=== PATIENT | female | born 1940 | race Caucasian/White ===

== ENCOUNTER 2021-06-19 10:09 | Emergency (ER) | payer MEDICARE ==
--- NOTE | 2021-06-19 11:47 | ER ---
Nurse's Notes [facility] Name: Aiyana Zamarripa Age: 81 yrs Sex: Female : 1940 Arrival Date: 06/19/2021 Time: 10:12 Bed 11 Private MD: Diagnosis: Pain in left knee;Synovial cyst of popliteal space [Gomez], left knee Presentation: 06/19 10:41 Chief complaint: Patient states: she is experiencing left knee pain, accompanied by ap3 left lower extremity swelling and feels a knot behind her left knee as well. Patient states she is here on vacation, and called her PCP from where she is from and was informed to be evaluated in the ED. Patient states she has had surgery on the injured knee approx 2 years ago. Coronavirus screen: At this time, the client does not indicate any symptoms associated with coronavirus-19. Ebola Screen: No symptoms or risks identified at this time. Initial Sepsis Screen: Does the patient meet any 2 criteria? No. Patient's initial sepsis screen is negative. Does the patient have a suspected source of infection? No. Patient's initial sepsis screen is negative. Risk Assessment: Do you want to hurt yourself or someone else? Patient reports no desire to harm self or others. Onset of symptoms was June 05, 2021. 10:41 Method Of Arrival: Ambulatory ap3 10:41 Acuity: AASHISH 3 ap3 Triage Assessment: 10:46 General: Appears in no apparent distress. Behavior is calm, cooperative, appropriate ap3 for age. Pain: Complains of pain in left knee Pain currently is 2 out of 10 on a pain scale. Pain began gradually. Neuro: Level of Consciousness is awake, alert, obeys commands, Oriented to person, place, time, situation, Appropriate for age Gait is steady, Speech is normal. Cardiovascular: Patient's skin is warm and dry. Respiratory: Airway is patent Respiratory effort is even, unlabored. Musculoskeletal: Swelling present in left leg. Historical: - Allergies: 10:44 Sulfa (Sulfonamide Antibiotics); ap3 10:44 Flonase; ap3 - Home Meds: 10:44 losartan oral [Active]; amlodipine oral [Active]; Synthroid Oral [Active]; ap3 - PMHx: 10:44 Hypertensive disorder; Hypothyroidism; Kidney disease; ap3 - Immunization history:: Client reports receiving the 1st dose of the Covid vaccine, Pneumococcal vaccine is not up to date, Flu vaccine is not up to date. - Social history:: Smoking status: Patient denies any tobacco usage or history of. Screenin:46 Abuse screen: Denies threats or abuse. Nutritional screening: No deficits noted. ap3 Tuberculosis screening: No symptoms or risk factors identified. Fall Risk No fall in past 12 months (0 pts). Assessment: 11:29 Reassessment: No changes from previously documented assessment. Patient and/or family ll1 updated on plan of care and expected duration. Pain level reassessed. Patient is alert, oriented x 3, equal unlabored respirations, skin warm/dry/pink. Gait steady from x ray. Vital Signs: 10:41 BP 154 / 73; Pulse 71; Resp 16; Temp 98.8; Pulse Ox 95% ; Weight 61.23 kg; Height 5 ft. ap3 6 in. (167.64 cm); Pain 2/10; 10:41 Body Mass Index 21.79 (61.23 kg, 167.64 cm) ap3 ED Course: 10:12 Patient arrived in ED. ds1 10:44 Triage completed. ap3 10:47 Arm band placed on right wrist. ap3 11:12 Extremity Venous Uni Ltd US In Process Unspecified. EDMS 11:14 Amol Huntley, IAN is Primary Nurse. ll1 11:22 XRAY Knee LEFT 3 view In Process Unspecified. EDMS 11:26 Chan Augustin PA is PHCP. jr8 11:26 Wanda Graves MD is Attending Physician. jr8 11:29 Patient has correct armband on for positive identification. Bed in low position. Call ll1 light in reach. Cardiac monitoring not applicable on this patient. 12:03 No provider procedures requiring assistance completed. Patient did not have IV access ll1 during this emergency room visit. Administered Medications: No medications were administered Outcome: :46 Discharge ordered by . jr8 12:03 Discharged to home ambulatory. ll1 12:03 Condition: stable 12:03 Discharge instructions given to patient, Instructed on discharge instructions, follow up and referral plans. Demonstrated understanding of instructions, follow-up care. 12:04 Patient left the ED. ll1 Signatures: Dispatcher [facility] Rachna Rubio ds1 Chan Augustin PA PA jr8 Suzie Mendoza, RN RN ap3 Amol Huntley, RN RN ll1
--- NOTE | 2021-06-19 11:47 | EDPHYS ---
Physician Documentation [facility] Name: Aiyana Zamarripa Age: 81 yrs Sex: Female : 1940 Arrival Date: 06/19/2021 Time: 10:12 Bed 11 Private MD: ED Physician Wanda Graves HPI: 06/19 11:40 This 81 yrs old Female presents to ER via Ambulatory with complaints of Knee Pain. jr8 11:40 Onset: The symptoms/episode began/occurred gradually. The patient has not experienced jr8 similar symptoms in the past. The patient has not recently seen a physician. Denies trauma. From [place]. Contacted her physician there today and was told to r/o DVT. Historical: - Allergies: 10:44 Sulfa (Sulfonamide Antibiotics); ap3 10:44 Flonase; ap3 - Home Meds: 10:44 losartan oral [Active]; amlodipine oral [Active]; Synthroid Oral [Active]; ap3 - PMHx: 10:44 Hypertensive disorder; Hypothyroidism; Kidney disease; ap3 - Immunization history:: Client reports receiving the 1st dose of the Covid vaccine, Pneumococcal vaccine is not up to date, Flu vaccine is not up to date. - Social history:: Smoking status: Patient denies any tobacco usage or history of. ROS: 11:40 Eyes: Negative for injury, pain, redness, and discharge, ENT: Negative for injury, jr8 pain, and discharge, Neck: Negative for injury, pain, and swelling, Cardiovascular: Negative for chest pain, palpitations, and edema, Respiratory: Negative for shortness of breath, cough, wheezing, and pleuritic chest pain, Abdomen/GI: Negative for abdominal pain, nausea, vomiting, diarrhea, and constipation, Back: Negative for injury and pain, Skin: Negative for injury, rash, and discoloration, Neuro: Negative for headache, weakness, numbness, tingling, and seizure. 11:40 MS/extremity: Positive for pain, tenderness, of the right leg. Exam: 11:42 Constitutional: This is a well developed, well nourished patient who is awake, alert, jr8 and in no acute distress. Cardiovascular: Regular rate and rhythm with a normal S1 and S2. No gallops, murmurs, or rubs. Normal PMI, no JVD. No pulse deficits. Respiratory: Lungs have equal breath sounds bilaterally, clear to auscultation and percussion. No rales, rhonchi or wheezes noted. No increased work of breathing, no retractions or nasal flaring. Back: No spinal tenderness. No costovertebral tenderness. Full range of motion. Skin: Warm, dry with normal turgor. Normal color with no rashes, no lesions, and no evidence of cellulitis. Neuro: Awake and alert, GCS 15, oriented to person, place, time, and situation. Cranial nerves II-XII grossly intact. Motor strength 5/5 in all extremities. Sensory grossly intact. 11:42 Musculoskeletal/extremity: Extremities: grossly normal except: noted in the left leg: pain, tenderness, To posterior knee, ROM: intact in all extremities, full active range of motion, full passive range of motion, Circulation is intact in all extremities. Sensation intact. Vital Signs: 10:41 BP 154 / 73; Pulse 71; Resp 16; Temp 98.8; Pulse Ox 95% ; Weight 61.23 kg; Height 5 ft. ap3 6 in. (167.64 cm); Pain 2/10; 10:41 Body Mass Index 21.79 (61.23 kg, 167.64 cm) ap3 MDM: 11:26 Patient medically screened. jr8 11:42 Data reviewed: vital signs, nurses notes, radiologic studies, doppler, plain films. jr8 Data interpreted: Pulse oximetry: on room air is 95 %. Interpretation: normal. Counseling: I had a detailed discussion with the patient and/or guardian regarding: the historical points, exam findings, and any diagnostic results supporting the discharge/admit diagnosis, radiology results, the need for outpatient follow up, a orthopedic surgeon, to return to the emergency department if symptoms worsen or persist or if there are any questions or concerns that arise at home. ED course: Discussed with patient that there were no acute osseous findings on imaging. Negative for DVT. Patient does have large bakers cyst. Can follow up with ortho. Patient good with plan. 06/19 10:51 Order name: Extremity Venous Uni Ltd ; Complete Time: 12:04 ap3 06/19 10:51 Order name: XRAY Knee LEFT 3 view; Complete Time: 12:04 ap3 Administered Medications: No medications were administered Disposition Summary: 04/05/22 11:46 Discharge Ordered Location: Home jr8 Problem: new jr8 Symptoms: have improved jr8 Condition: Stable jr8 Diagnosis - Pain in left knee jr8 - Synovial cyst of popliteal space [Gomez], left knee jr8 Followup: jr8 - With: Private Physician - When: 1 week - Reason: Recheck today's complaints, Continuance of care, Re-evaluation by your physician Discharge Instructions: - Discharge Summary Sheet jr8 - Gomez Cyst jr8 - Acute Knee Pain, Adult jr8 Forms: - Medication Reconciliation Form jr8 - Thank You Letter jr8 - Antibiotic Education jr8 - Prescription Opioid Use jr8 Signatures: Dispatcher [employer] EDMS Chan Augustin PA PA jr8 Suzie Mendoza RN RN ap3 Corrections: (The following items were deleted from the chart) 11:47 11:42 Musculoskeletal/extremity: Extremities: grossly normal except: noted in the right jr8 leg: pain, tenderness, To posterior knee, ROM: intact in all extremities, full active range of motion, full passive range of motion, Circulation is intact in all extremities. Sensation intact. jr8
--- NOTE | 2021-06-19 12:00 | RAD REPORT ---
EXAM DESCRIPTION: RAD - Knee Left 3 View - 06/19/2021 11:21 am CLINICAL HISTORY: Left knee pain FINDINGS: No fracture or dislocation is seen. Medial left knee arthroplasty in place.
--- NOTE | 2021-06-19 12:01 | RAD REPORT ---
EXAM DESCRIPTION: USExtremity Venous Uni Ltd06/19/2021 11:10 am CLINICAL HISTORY: left leg pain and swelling. COMPARISON: None. FINDINGS: Left common femoral, superficial femoral, popliteal and posterior tibial veins are compre ssible and demonstrate augmentation. Doppler demonstrates good flow. 13 centimeter fluid collection containing debris is extends from the posterior left knee into the upp er calf Grayscale, color and spectral analysis performed on all vessels IMPRESSION: No evidence of deep venous thrombosis involving the left lower extremity. 13 centimeter fluid collection could either represent a ruptured Gomez cyst or hematoma
[2021-06-19 16:30] VITALS: BP 154/73; TEMP 98.8; O2SAT 95
== END 2021-06-19 12:04 | disposition home or self-care (01) ==
LOC: ER 10:09
DX: M71.22 Synovial cyst of popliteal space [Baker], left knee (principal); I10 Essential (primary) hypertension; E03.9 Hypothyroidism, unspecified; Z88.2 Allergy status to sulfonamides; Z88.8 Allergy status to other drugs, medicaments and biological substances
CPT/HCPCS: 93971; 99283